=== PATIENT | male | born 1980 | race Caucasian/White ===

== ENCOUNTER → 2019-09-27 | Outpatient (CLI) | payer OTHER ==
--- NOTE | 2019-09-27 16:53 | KCIC ---
EXAM: Lumbar spine MRI without contrast. HISTORY: Lower back pain. TECHNIQUE: Multiplanar, multisequence magnetic resonance imaging of the lumbar spine was performed without contrast. COMPARISON: None. FINDINGS: There is mild lumbar scoliosis. There is minimal retrolisthesis of L1 on L2 and L2 on L3. There is degenerative endplate remodeling with spurring and Schmorl's node formation at the lower thoracic and upper and mid lumbar levels. There is no acute or subacute fracture. There is no suspicious osseous lesion. The conus terminates at L1-L2. At T11-T12, there is a minimal disc bulge. There is no stenosis. At T12-L1, there is a minimal disc bulge. There is no stenosis. At L1-L2, there is a mild disc bulge. There is minimal retrolisthesis. There is no stenosis. At L2-L3, there is a mild disc bulge. There is minimal retrolisthesis. There is abutment or near abutment of the exiting left L2 nerve root, without significant stenosis. At L3-L4, there is a shallow broad-based left foraminal to extra foraminal disc protrusion and annular tear superimposed on a disc bulge and endplate remodeling. There is minimal left facet arthropathy. There is mild left foraminal stenosis with abutment of the exiting left L3 nerve root. At L4-L5, there is a disc bulge and endplate remodeling. There is mild bilateral facet arthropathy. There is no stenosis. At L5-S1, there is a tiny shallow posterior central disc protrusion. There are suspected bilateral foraminal to extra foraminal disc with osteophyte complexes. There is mild bilateral facet arthropathy. There is abutment of the exiting L5 nerve roots without significant stenosis. IMPRESSION: 1. Multilevel degenerative change involving the lumbar spine and lower thoracic spine, described above. 2. No acute finding. Electronically signed by: Allyssa Vanessa MD (09/27/2019 4:50 PM) [place] [id number]
== END | disposition home or self-care (01) ==
LOC: KCIC MRI 15:57
PROVIDERS: ATTEND Family Medicine
DX: M51.27 Other intervertebral disc displacement, lumbosacral region (principal); M51.25 Other intervertebral disc displacement, thoracolumbar region; M51.36 Other intervertebral disc degeneration, lumbar region; M48.061 Spinal stenosis, lumbar region without neurogenic claudication; M41.86 Other forms of scoliosis, lumbar region
CPT/HCPCS: 72148